=== PATIENT | female | born 1980 | race Caucasian/White ===

== ENCOUNTER 2019-04-27 13:25 | Emergency (ER) | payer OTHER ==
[2019-04-27 13:40] VITALS: BMI 37.8
--- NOTE | 2019-04-27 13:40 | PDOC ---
Rapid Medical Evaluation Medical Evaluation: I have performed a brief in-person evaluation of this patient. The patient presents with a chief complaint of: had medical 03/17 at [facility] and having vaginal bleeding since then; states bleeding had decreased at one point, but today, it is heavy again Pertinent physical exam findings: in NAD, pelvic deferred I have ordered the following: Labs, pelvic US The patient will proceed to the ED for further evaluation. 04/27/19 13:38
--- NOTE | 2019-04-27 14:17 | PDOC ---
History of Present Illness - General Chief Complaint: Vaginal Bleeding Stated Complaint: VAG BLEED Time Seen by Provider: 04/27/19 13:38 History Source: Patient Exam Limitations: No Limitations - History of Present Illness Initial Comments: 04/30/19 04:45 HPI: 39F PMH HLD presenting with vaginal bleeding since medical at [facility] on 03/17/19. States bleeding has been waxed/waned in heaviness. On most weeks, pt states she uses 2 pads a day w/o soaking. Occasionally will pass clots; passed three clots today. Of note, patient was scheduled to have a D&C but ultimately was unable to have it performed. No current OB/GYNs. Denies f/c, n/v, cp/sob. Endorses occasional cramping. No concerns for STIs. LMP in January. Using condoms as contraception until she can receive IUD; , monogamous. Past History - Past Medical History Allergies/Adverse Reactions: Allergies Allergy/AdvReac Type Severity Reaction Status Date / Time No Known Allergies Allergy Verified 04/27/19 13:40 Home Medications: Ambulatory Orders Misoprostol [Cytotec] 200 mcg PO TID #9 tablet 04/27/19 COPD: No - Psycho Social/Smoking Cessation Hx Smoking History: Never smoked Review of Systems - Review of Systems Able to Perform ROS?: Yes Comments:: 04/30/19 04:45 ROS: CONSTITUTIONAL: Denies F / C HEENT: Denies lightheadedness, dizziness. RESP: Denies SOB, CARD: Denies chest pain, palpitations GI: Endorse suprapubic cramping occasionally. Denies N / V / D, abdominal pain, inability to tolerate PO : Denies dysuria, frequency PSYCH: Endorses nervousness. Is the patient limited Estonian proficient: No *Physical Exam - Vital Signs Last Vital Signs Temp Pulse Resp BP Pulse Ox 98.9 F 118 H 18 163/85 100 04/27/19 13:36 04/27/19 13:36 04/27/19 13:36 04/27/19 13:36 04/27/19 13:36 - Physical Exam Comments: 04/30/19 04:45 PE: GEN: Well appearing, NAD, comfortable. AAOx3 HEENT: NC/AT, EOMI, PERRLA. No facial asymmetry. Moist mucous membranes. Normal voice. Supple neck w/ FROM. CV: S1/S2, tachycardic, no m/r/g LUNG: CTAB, no wheezes, crackles, rales, rhonchi. GI: soft, ndnt, +BS, no guarding, no rebound. No masses. Pelvic: No atrophy, some residual blood on inspection. Cervical os visualized and closed with dark red oozing. No discharge or tissue projection. + blood in vault. EXTREMITIES: No LE edema. No obvious deformities of all extremities. SKIN: warm, dry, normal turgor PSYCH: normal mood and affect NEURO: Moving all extremities well. Ambulates w/ normal gait ED Treatment Course - LABORATORY CBC & Chemistry Diagram: 04/27/19 14:00 04/27/19 14:00 Medical Decision Making - Medical Decision Making 04/27/19 14:31 MDM: 39F with vaginal bleeding since medical 03/17/19; did not have a scheduled D&C. Tachycardic. exam showed blood in vault and slow dark oozing from a closed cervix. Concern for retained POC - CBC, CMP, hCG - UA, UC - TVUS 04/27/19 15:15 labs reviewed H/H 9.2 / 28.5 B-hCG 60 04/27/19 16:40 TVUS report shows retained POC, IMPRESSION: - A 0.7 cm fluid structure is seen within the endometrial canal suggestive of a gestational sac. No associated embryonic pole or yolk sac is noted. There appears to be a small amount of intraluminal debris within this gestational sac like structure. - The endometrium is thickened measuring 1.7 cm. Alternatively this appearance could represent clotted blood and/or retained products of conception. Spoke to Dr. Garcia who recommended IM methergine, 3 days of 200mcg cytotec TID, and f/u w/ her at [address] [place] [address] on Tuesday05/01/19 Type and screen hemolyzed; redraw 04/27/19 17:43 f/u Type and Screen results then DC home w/ OBGYN f/u and return precautions; meds transmitted 04/27/19 18:48 blood: A pos, neg antibody screen DC home as above Discharge - Discharge Information Problems reviewed: Yes Clinical Impression/Diagnosis: Retained products of conception Condition: Stable Disposition: HOME - Admission No - Additional Discharge Information Prescriptions: Misoprostol [Cytotec] 200 mcg PO TID #9 tablet - Follow up/Referral Referrals: Negra Garcia MD [Staff Physician] - - Patient Discharge Instructions Patient Printed Discharge Instructions: DI for Vaginal Bleeding Additional Instructions: We have sent a medication to your pharmacy ([facility]), please pick it up and take as prescribed: One tablet every 8 hours (three times a day) for three days. Follow up with RN PROCEDURE: We have referred you to Dr. Garcia who will see you in her office at [address] [place] [address] on Tuesday05/01/19 The number to contact her is attached. IMMEDIATELY return to the Emergency Department if you experience any of the following: - heavy bleeding (soaking 1 pad an hour for two consecutive hours) - chest pain, shortness of breath - lightheadedness, dizziness, loss of consciousness - ANYTHING that concerns you - Post Discharge Activity Work/Back to School Note: Back to Work
[2019-04-27 14:28] LABS: BASO % 1.2 % (0-2.0); HEMATOCRIT 28.5 % (32.4-45.2); HEMOGLOBIN 9.2 GM/dL (10.7-15.3); LYMPH % 25.7 % (8-40); MCH 24.6 pg (25.7-33.7); MCHC 32.2 g/dl (32.0-36.0); MEAN CELL VOLUME 76.5 fl (80-96); MEAN PLT VOLUME 6.9 fl (7.5-11.1); MONO % 5.6 % (3.8-10.2); NEUT % 66.5 % (42.8-82.8); PLATELET COUNT 459 K/MM3 (134-434); RBC 3.72 M/mm3 (3.60-5.2); RDW 17.1 % (11.6-15.6); WHITE BLOOD COUNT 6.7 K/mm3 (4.0-10.0)
[2019-04-27 14:53] LABS: BLOOD UREA NITROGEN 14.6 mg/dL (7-18); CALCIUM 9.1 mg/dL (8.5-10.1); CREATININE 0.9 mg/dL (0.55-1.3); POTASSIUM 4.2 mmol/L (3.5-5.1)
[2019-04-27] MEDS ORDERED: SODIUM CHLORIDE 0.9% 500 ML INFUS.BAG IV ONE (15:19)
--- NOTE | 2019-04-27 15:19 | PDOC ---
Attending Attestation - Resident Resident Name: Danny Borges - ED Attending Attestation I have performed the following: I have examined & evaluated the patient, The case was reviewed & discussed with the resident, I agree w/resident's findings & plan, Exceptions are as noted - HPI HPI: 04/27/19 15:08 Ms Hung is a 39 yo F PMH HLD presenting with vaginal bleeding since medical at [facility] on 03/17/19. Pt has had intermittent vaginal bleeding - typically saturating 2 pads/ day Patient was scheduled to have a D&C but ultimately was unable to have it performed. no fevers or chills (+) intermittent cramping 04/27/19 15:09 - Physicial Exam PE: 04/27/19 15:08 PE: GEN: Well appearing, NAD, comfortable. AAOx3 HEENT: NC/AT, EOMI, PERRLA. No facial asymmetry. Moist mucous membranes. CV: S1/S2, tachycardic, no m/r/g LUNG: CTAB, no wheezes, crackles, rales, rhonchi. GI: soft, ndnt, +BS, no guarding, no rebound. No masses. Pelvic: per Dr. Borges EXTREMITIES: No LE edema. No obvious deformities of all extremities. SKIN: warm, dry, normal turgor PSYCH: normal mood and affect NEURO: Moving all extremities well. Ambulates w/ normal gait - Medical Decision Making 04/27/19 15:11 39-year-old female presenting to the emergency department with a complaint of vaginal bleeding which is persisted since her ETOP on 03/17 Differential diagnosis includes but is not limited to Retained products of conception New We will do: Lab Transvaginal ultrasound [employer] consult Reassess Laboratory Tests 04/27/19 04/27/19 14:00 14:00 WBC 6.7 Hgb 9.2 L Hct 28.5 L Plt Count 459 H Beta HCG, Quant 60.1 04/27/19 15:19 04/27/19 16:34 Ultrasound reveals: 0.7 cm fluid structure seen in the endometrial canal suggestive of gestational sac, no embryonic pole or yolk sac is noted. Small amount of intraluminal debris with this gestational sac like structure, endometrial thickening measuring 1.7 cm Neither ovary could be visualized No free fluid We will contact Dr. Garcia for specialty consultation Pt signed out to Dr Jay
[2019-04-27 15:36] LABS: ANISOCYTOSIS 1+; MACROCYTOSIS 0; OVALOCYTE 1+; PLATELET ESTIMATE NORMAL
[2019-04-27] MEDS ORDERED: METHYLERGONOVINE MALEATE 0.2 MG/1 ML AMP IM ONE (16:39)
[2019-04-27 19:00] VITALS: BP 126/74; PULSE 96; TEMP 98.7
== END 2019-04-27 19:00 | disposition home or self-care (01) ==
LOC: JER 13:25
PROC: 3E023GC Introduction of Other Therapeutic Substance into Muscle, Percutaneous Approach (ICD-10-PCS; principal; 2019-04-27)
DX: O07.1 Delayed or excessive hemorrhage following failed attempted termination of pregnancy (principal)
CPT/HCPCS: 36415; 76830-TC; 80048; 84702; 85025; 86850; 86900; 86901; 96372; 99283-25